=== PATIENT | male | born 1995 | race American Indian/Alaskan Native ===

== ENCOUNTER 2017-09-24 13:35 | Outpatient (CLI) | payer BC ==
--- NOTE | 2017-09-24 14:19 | XRay Report ---
LEFT FOREARM: Movement restriction, pain. AP and lateral views of the forearm to include wrist and elbow demonstrate normal mineralization and contours for this patient's age. No destructive changes are noted and the adjacent soft tissues are normal. IMPRESSION: Normal left forearm.
== END 2017-09-24 13:36 | disposition home or self-care (01) ==
LOC: SPVIMAG 13:35
PROVIDERS: ATTEND Orthopaedic Surgery
DX: M25.532 Pain in left wrist (principal)